=== PATIENT | male | born 2000 | race Caucasian/White ===

== ENCOUNTER 2020-01-17 18:35 | Observation (INO) ==
[2020-01-17] MEDS ORDERED: ONDANSETRON INJ 2 MG/ML 2 ML VIAL IV STA (19:19)
[2020-01-17] MEDS ORDERED: SODIUM CHLORIDE 0.9% 500 ML IV STA (19:19)
[2020-01-17 19:36] LABS: Basophils # (auto) 0.01 K/uL (0-0.2); Basophils % (auto) 0.1 %; Hemoglobin 16.2 g/dL (14.0-18.0); Immature Granulocytes # (auto) 0.02 K/uL (0.00-0.02); Immature Granulocytes % (auto) 0.2 %; Lymphocytes # (auto) 1.08 K/uL (1.2-3.4); Lymphocytes % (auto) 8.6 %; Mean Corpuscular Hemoglobin 30.9 pg (25-34); Mean Corpuscular Volume 85.9 fL (80-100); Mean Platelet Volume 9.8 fL (7.4-10.4); Monocytes # (auto) 1.18 K/uL (0.11-0.59); Monocytes % (auto) 9.4 %; Neutrophils # (auto) 10.21 K/uL (1.4-6.5); Neutrophils % (auto) 81.7 %; Platelet Count 284 K/uL (130-400); RDW Coefficient of Variation 12.3 % (11.5-14.5); RDW Standard Deviation 38.4 fL (36.4-46.3); Red Blood Count 5.24 M/uL (4.7-6.1)
[2020-01-17 19:59] LABS: Albumin Level 4.7 gm/dl (3.4-5.0); BUN Creatinine Ratio 27.6 (10-20); Calcium 9.9 mg/dl (8.5-10.1); Creatinine Clr Calc Pharmacy 85.6 ml/min; Est GFR (African American) 103.1; Est GFR (Non-African American) 88.9; Potassium 3.3 mmol/L (3.5-5.1)
[2020-01-17 20:01] LABS: Albumin Globulin Ratio 1.1 (0.9-2); Bilirubin,Total 1.7 mg/dl (0.2-1); Globulin 4.1 gm/dl (2.5-4.0); Total Protein 8.8 gm/dl (6.4-8.2)
[2020-01-17] MEDS ORDERED: SODIUM CHLORIDE 0.9% 1000ML 1,000 ML IV ONE (20:08)
[2020-01-17] MEDS ORDERED: SODIUM CHLORIDE 0.9% 1000ML 500 ML IV ONE (20:08)
[2020-01-17] MEDS ORDERED: KETOROLAC TROMETHAMINE 15 MG/ML VIAL IV ONE (20:11)
[2020-01-17] MEDS ORDERED: PROMETHAZINE 12.5 MG/50.5 ML BAG IV STA (20:11)
--- NOTE | 2020-01-17 20:15 | Emergency Department Note ---
Impression & Plan Acute dehydration, Vomiting, Failure of outpatient treatment ED Provider Note NAME: ANA CAPUTO AGE: 19 SEX: M : 2000 ARRIVES VIA: Walk-In INFORMANT: [Patient] ED PROVIDER(S): [Patrick Wiseman MD] CHIEF COMPLAINT: Vomiting HISTORY OF PRESENT ILLNESS: The patient is a 19-year-old male who is had 36 hours of vomiting. He does not really have any pain. There has been no diarrhea. No fever, chills, cough or congestion. He thinks he has food poisoning from some [place] food he ate the night before. The patient did go to urgent care yesterday, he was given ODT Zofran but, he is still vomiting. He presents for evaluation. He is concerned about dehydration. REVIEW OF SYSTEMS: See HPI for pertinent positives and negatives. A total of ten systems were reviewed and were otherwise negative. PMHx/PSHx: See Below SOCIAL HISTORY: See Below. PHYSICAL EXAM: GENERAL: Patient is in no acute distress. HEENT: No acute trauma, normocephalic atraumatic, mucous membranes dry, no nasal congestion, no scleral icterus. NECK: No stridor, no adenopathy, no meningismus, trachea is midline. LUNGS: Clear to auscultation bilaterally, no wheeze, no rhonchi, breath sounds equal. HEART: Without murmurs gallops or rubs, regular rate and rhythm. ABDOMEN: Soft, mildly tender in the epigastrium with palpation, bowel sounds positive, no hernias, no peritonitis. EXTREMITIES: No cyanosis or edema, full range of motion of all the joints without pain or difficulty, no signs for acute trauma. NEUROLOGIC: Oriented x 3, no acute motor or sensory deficits, no focal weakness. SKIN: No rash, no jaundice, no diaphoresis. DIFFERENTIAL DIAGNOSIS: Appendicitis, testicular torsion, infections, diverticulitis, UTI, obstruction, dehydration, foodborne or viral illness, mesenteric ischemia, aortic pathology, inflammatory bowel disease, renal colic, PUD, pancreatitis, biliary pathology, hernia, volvulus, constipation, as well as other pathologies. EMERGENCY DEPARTMENT COURSE/PROCEDURES: MEDICAL DECISION MAKING: There is a slight leukocytosis, this is consistent with all his vomiting. There is a normal hemoglobin and platelet count. Potassium slightly low at 3.3, no kidney failure. Bilirubin slightly elevated at 1.7, the remaining liver enzymes were unremarkable. No evidence for pancreatitis. Urinalysis showed some dehydration, no evidence for infection. Abdominal series did not show pneumonia, free air or bowel obstruction. On exam, the patient was afebrile, he was not toxic. There was no peritonitis. He did seem dehydrated. The patient received IV Toradol, IV Zofran and IV Phenergan. He was given 2 L of IV saline and 1 L of lactated Ringer's. The patient was still nauseated. He attempted some water by mouth and vomited. The patient received IV Reglan, he was given IV Benadryl. I have ordered for a CT of the abdomen pelvis to look for possibly appendicitis or some other type of surgical issue that might explain his persistent vomiting. This result is pending. Patient is not able to be discharged home. He is persistently vomiting despite numerous medications. He is quite dehydrated. He is not febrile, he does not have peritonitis. I spoke to the patient and case management. The on-call hospitalist has been counseled. The reason for the persistent vomiting is not clear. Past Med/Surg History Medical History No significant past medical history Social History Smoking Status: Never smoker Feels Safe at Home: Yes Allergies Allergies Allergy/AdvReac Type Severity Reaction Status Date / Time No Known Allergies Allergy Unverified 01/17/20 20:21 Home Meds Home Medications Medication Instructions Recorded Confirmed No Known Home Medications 01/17/20 01/17/20 Results & Data (ED) Vital Signs Vital Signs - 24 hr 01/17/20 18:53 01/17/20 19:30 01/17/20 20:00 Temperature 36.3 C L Temperature Source Oral Pulse Rate 87 78 61 Pulse Rate from SpO2 Sensor 78 64 Respiratory Rate 20 18 15 Respiratory Effort / Characteristics Non-Labored Spontaneous Respiratory Depth Normal Respiratory Pattern Regular Blood Pressure 125/78 132/77 125/71 Blood Pressure Mean 93 93 85 Blood Pressure Position Sitting Pulse Oximetry 100 99 100 Oxygen Delivery Method Room Air Sepsis Recent Fever Within 48 Hours No Sepsis New/Unexplained Change in Mental Status N/A Sepsis Action Taken by Nursing No Action Required 01/17/20 20:30 01/17/20 21:00 01/17/20 21:30 Temperature Temperature Source Pulse Rate 78 66 Pulse Rate from SpO2 Sensor 66 Respiratory Rate 14 Respiratory Effort / Characteristics Respiratory Depth Respiratory Pattern Blood Pressure 121/77 117/77 122/69 Blood Pressure Mean 85 90 87 Blood Pressure Position Pulse Oximetry 100 Oxygen Delivery Method Sepsis Recent Fever Within 48 Hours Sepsis New/Unexplained Change in Mental Status Sepsis Action Taken by [facility] Medications Current Medication List: was personally reviewed by me Laboratory Data Attestation: I reviewed the patient's lab results. Result diagrams: 01/17/20 19:30 01/17/20 19:30 Lab Results 01/17/20 01/17/20 01/17/20 Range/Units 19:30 19:30 19:30 WBC 12.50 H (4.8-10.8) K/uL RBC 5.24 (4.7-6.1) M/uL Hgb 16.2 (14.0-18.0) g/dL Hct 45.0 (42-52) % MCV 85.9 (80-100) fL MCH 30.9 (25-34) pg MCHC 36.0 (32-36) g/dL RDW Std Deviation 38.4 (36.4-46.3) fL RDW Coeff of Malick 12.3 (11.5-14.5) % Plt Count 284 (130-400) K/uL MPV 9.8 (7.4-10.4) fL Immature Gran % (Auto) 0.2 % Neut % (Auto) 81.7 % Lymph % (Auto) 8.6 % [place]osey % (Auto) 9.4 % Eos % (Auto) 0.0 % Baso % (Auto) 0.1 % Neut # (Auto) 10.21 H (1.4-6.5) K/uL Lymph # (Auto) 1.08 L (1.2-3.4) K/uL [place] # (Auto) 1.18 H (0.11-0.59) K/uL Eos # (Auto) 0.00 (0-0.5) K/uL Baso # (Auto) 0.01 (0-0.2) K/uL Immature Gran # (Auto) 0.02 (0.00-0.02) K/uL Sodium 139 (136-145) mmol/L Potassium 3.3 L (3.5-5.1) mmol/L Chloride 98 (98-107) mmol/L Carbon Dioxide 32 (21-32) mmol/L Anion Gap 9.0 (3-11) BUN 33 H (7-18) mg/dl Creatinine 1.18 (0.6-1.4) mg/dl Est Cr Clr Drug Dosing 85.6 ml/min Est GFR ( Amer) 103.1 Est GFR (Non-Af Amer) 88.9 BUN/Creatinine Ratio 27.6 H (10-20) Glucose 111 H (70-99) mg/dl Calcium 9.9 (8.5-10.1) mg/dl Magnesium 2.6 H (1.8-2.4) mg/dl Total Bilirubin 1.7 H (0.2-1) mg/dl AST 26 (15-37) U/L ALT 26 (12-78) U/L Alkaline Phosphatase 70 (45-117) U/L Total Protein 8.8 H (6.4-8.2) gm/dl Albumin 4.7 (3.4-5.0) gm/dl Globulin 4.1 H (2.5-4.0) gm/dl Albumin/Globulin Ratio 1.1 (0.9-2) Lipase 68 L (73-393) U/L Urine Color Urine Appearance (Clear) Urine pH (4.5-7.5) Ur Specific [place] (1.000-1.030) Urine Protein (Negative) Urine Glucose (UA) (Negative) Urine Ketones (Negative) Urine Blood (Negative) Urine Nitrite (Negative) Urine Bilirubin (Negative) Urine Urobilinogen (Negative) Ur Leukocyte Esterase (Negative) Urine WBC (Auto) (0-5) /hpf Urine RBC (Auto) (0-4) /hpf U Hyaline Cast (Auto) (0-5) /lpf U Epithel Cells (Auto) (0-5) /lpf Urine Bacteria (Auto) (Negative) 01/17/20 Range/Units 21:10 WBC (4.8-10.8) K/uL RBC (4.7-6.1) M/uL Hgb (14.0-18.0) g/dL Hct (42-52) % MCV (80-100) fL MCH (25-34) pg MCHC (32-36) g/dL RDW Std Deviation (36.4-46.3) fL RDW Coeff of Malick (11.5-14.5) % Plt Count (130-400) K/uL MPV (7.4-10.4) fL Immature Gran % (Auto) % Neut % (Auto) % Lymph % (Auto) % [place] % (Auto) % Eos % (Auto) % Baso % (Auto) % Neut # (Auto) (1.4-6.5) K/uL Lymph # (Auto) (1.2-3.4) K/uL [place] # (Auto) (0.11-0.59) K/uL Eos # (Auto) (0-0.5) K/uL Baso # (Auto) (0-0.2) K/uL Immature Gran # (Auto) (0.00-0.02) K/uL Sodium (136-145) mmol/L Potassium (3.5-5.1) mmol/L Chloride (98-107) mmol/L Carbon Dioxide (21-32) mmol/L Anion Gap (3-11) BUN (7-18) mg/dl Creatinine (0.6-1.4) mg/dl Est Cr Clr Drug Dosing ml/min Est GFR ( Amer) Est GFR (Non-Af Amer) BUN/Creatinine Ratio (10-20) Glucose (70-99) mg/dl Calcium (8.5-10.1) mg/dl Magnesium (1.8-2.4) mg/dl Total Bilirubin (0.2-1) mg/dl AST (15-37) U/L ALT (12-78) U/L Alkaline Phosphatase (45-117) U/L Total Protein (6.4-8.2) gm/dl Albumin (3.4-5.0) gm/dl Globulin (2.5-4.0) gm/dl Albumin/Globulin Ratio (0.9-2) Lipase (73-393) U/L Urine Color Dark Yellow Urine Appearance Clear (Clear) Urine pH 7.0 (4.5-7.5) Ur Specific [place] 1.034 H (1.000-1.030) Urine Protein 2+ H (Negative) Urine Glucose (UA) Negative (Negative) Urine Ketones 1+ H (Negative) Urine Blood Negative (Negative) Urine Nitrite Negative (Negative) Urine Bilirubin Negative (Negative) Urine Urobilinogen Negative (Negative) Ur Leukocyte Esterase Negative (Negative) Urine WBC (Auto) 1-5 (0-5) /hpf Urine RBC (Auto) 5-10 H (0-4) /hpf U Hyaline Cast (Auto) 1-5 (0-5) /lpf U Epithel Cells (Auto) 20-30 H (0-5) /lpf Urine Bacteria (Auto) Negative (Negative) Administered Medications Discontinued Medications Diphenhydramine HCl (Diphenhydramine Hcl 50 Mg/Ml Vial) 12.5 mg IV NOW STA Stop: 01/17/20 22:10 Last Admin: 01/17/20 22:15 Dose: 12.5 mg Documented by: [id number] Sodium Chloride (Nss) 500 mls @ 999 mls/hr IV .Q31M STA Stop: 01/17/20 19:49 Last Infusion: 01/17/20 20:24 Dose: 0 mls/hr Documented by: [id number] Admin: 01/17/20 19:33 Dose: 999 mls/hr Documented by: [id number] Sodium Chloride (Nss 1000ml) 1,000 mls @ 999 mls/hr IV .Q1H1M ONE Stop: 01/17/20 21:08 Last Infusion: 01/17/20 20:54 Dose: 0 mls/hr Documented by: [id number] Admin: 01/17/20 20:23 Dose: 999 mls/hr Documented by: [id number] Sodium Chloride (Nss 1000ml) 500 mls @ 999 mls/hr IV .Q31M ONE Stop: 01/17/20 20:38 Last Infusion: 01/17/20 20:54 Dose: 0 mls/hr Documented by: [id number] Admin: 01/17/20 20:23 Dose: 999 mls/hr Documented by: [id number] Promethazine HCl (Phenergan) 12.5 mg in 50.5 mls @ 202 mls/hr IV NOW STA Stop: 01/17/20 20:25 Last Infusion: 01/17/20 20:38 Dose: 0 mls/hr Documented by: [id number] Admin: 01/17/20 20:23 Dose: 202 mls/hr Documented by: [id number] Lactated Ringer's (Lr) 1,000 mls @ 999 mls/hr IV .Q1H1M STA Stop: 01/17/20 22:07 Last Infusion: 01/17/20 22:10 Dose: 0 mls/hr Documented by: [id number] Admin: 01/17/20 21:09 Dose: 999 mls/hr Documented by: [id number] Ketorolac Tromethamine (Ketorolac Tromethamine 15 Mg/Ml Vial) 10 mg IV NOW ONE Stop: 01/17/20 20:12 Last Admin: 01/17/20 20:23 Dose: 10 mg Documented by: [id number] Metoclopramide HCl (Metoclopramide Hcl Inj 5 Mg/Ml 2 Ml Vial) 10 mg IV NOW STA Stop: 01/17/20 22:10 Last Admin: 01/17/20 22:15 Dose: 10 mg Documented by: [id number] Ondansetron HCl (Ondansetron Inj 2 Mg/Ml 2 Ml Vial) 4 mg IV NOW STA Stop: 01/17/20 19:20 Last Admin: 01/17/20 19:33 Dose: 4 mg Documented by: [id number] Imaging Data Radiologist's Impression: XR abdomen 2V w PA chest CLINICAL HISTORY: Nausea, vomiting, diarrhea COMPARISON STUDY: No previous studies for comparison. FINDINGS: The erect chest reveals no evidence of free air. There is no evidence of focal pulmonary consolidation.] Erect and supine views of the abdomen reveal no abnormally dilated loops of large or small bowel. There are no transition zone to indicate bowel obstruction. There is a mild thoracolumbar scoliosis IMPRESSION: No evidence of bowel obstruction. No evidence of free air. Abdominal and pelvis CT with IV contrast is pending. Blood Pressure Blood Pressure Findings: Elevated blood pressure Blood Pressure Disposition: further management by hospitalist Discharge Plan Visit Data Chief Complaint: Vomiting Stated Complaint: VOMIT, NAUSEA ED Provider: Patrick Wiseman Discharge Problem: Acute dehydration, Vomiting, Failure of outpatient treatment Patient Disposition: Admitted As Inpatient Condition: Fair Forms Stand Alone Forms: [facility] Emergency Department, Important Visit Information Prescriptions Prescriptions: No Action No Known Home Medications RF: 0 Referrals Referrals: Nba Munoz DO [Primary Care Provider] - Discharge Problem: Vomiting Qualifiers: Vomiting type: unspecified Vomiting Intractability: intractable Nausea presence: with nausea Qualified Code(s): R11.2 - Nausea with vomiting, unspecified
--- NOTE | 2020-01-17 21:05 | XRay Report ---
XR abdomen 2V w PA chest CLINICAL HISTORY: Nausea, vomiting, diarrhea COMPARISON STUDY: No previous studies for comparison. FINDINGS: The erect chest reveals no evidence of free air. There is no evidence of focal pulmonary co nsolidation.] Erect and supine views of the abdomen reveal no abnormally dilated loops of large or sm all bowel. There are no transition zone to indicate bowel obstruction. There is a mild thoracolumbar scoliosis IMPRESSION: No evidence of bowel obstruction. No evidence of free air. ACT 112: Negative or not required by law. Electronically signed by: Miguel Miguel M.D. 01/17/2020 9:04 PM
[2020-01-17] MEDS ORDERED: LACTATED RINGER'S 1,000 ML IV STA (21:07)
[2020-01-17 21:20] LABS: Appearance Urine Clear (Clear); Bacteria Urine Automated Negative (Negative); Bilirubin Urine Negative (Negative); Blood Urine Negative (Negative); Color Urine Dark Yellow; Epithelial Cell Urine Auto 20-30 /lpf (0-5); Glucose Urine UA Negative (Negative); Ketones Urine 1+ (Negative); Leukocyte Esterase Urine Negative (Negative); Nitrite Urine Negative (Negative); Protein Urine 2+ (Negative); Specific Gravity Urine 1.034 (1.000-1.030); Urobilinogen Urine Negative (Negative)
[2020-01-17] MEDS ORDERED: METOCLOPRAMIDE HCL INJ 5 MG/ML 2 ML VIAL IV STA (22:09)
[2020-01-17] MEDS ORDERED: DiphenhydrAMINE HCL 50 MG/ML VIAL IV STA ×2 (22:09→22:31)
[2020-01-17] MEDS ORDERED: LORazepam 1 MG/2 ML VIAL IV STA (22:31)
[2020-01-17] MEDS ORDERED: IOVERSOL 100ml IV ONE (22:36)
--- NOTE | 2020-01-17 23:05 | History & Physical Report ---
Date of Service January 17, 2020 Assessment & Plan (1) Vomitinyo C male [employer] with no significant past medical or surgical history presenting with 1 day of intractable nausea, multiple episodes of non-bloody/non-bilious vomiting. Patient thinks his symptoms may be secondary to food poisoning from a [employer] house. He is afebrile, HD stable, non-toxic in appearance but persistently nauseated. Labs with elevated WBC=12.5 and Tbili=1.7. Mild hypokalemia at 3.3 -Observation to medical floor -NSS at 125mL/hr +KCl -Zofran and Phenergan PRN F/E/N - NSS and K as above, monitor electrolytes, clear liquid diet as tolerated Ppx - Low risk for DVT Code - Full Dispo - Observation to medical floor Present on Admission?: Yes History of Present Illness Chief Complaint: nausea/vomiting, intractable Primary Care Provider: Nba Munoz DO Rony Palma is a 19yo C male with no significant past medical or surgical history presenting with severe nausea and vomiting that started yesterday AM. Patient reports eating a noodle bowl before his symptoms began. He reports multiple episodes of non-bloody/non-bilious vomiting and po intolerance. No fevers/chills/sweats or diarrhea. No cough/SOB/CP. No concerns for Covid-19 infection. Patient denies EtOH and Marijuana use. Patient was seen at Urgent Care and prescribed Zofran ODT. He took two doses of this with minimal relief in symptoms. On arrival to the ER he was found to be afebrile, HD stable, NAD. He was administered IV Benadryl, Reglan, Phenergan and Zofran in the ER with very little improvement in symptoms. Patient tried to drink a small amount of water in the ER and vomited. No additional complaints at this time. Allergies Allergy/AdvReac Type Severity Reaction Status Date / Time No Known Allergies Allergy Unverified 01/17/20 20:21 Home Medications Home Medications Medication Instructions Recorded Confirmed Type No Known Home Medications 01/17/20 01/17/20 History Past Med/Surg History Medical History (Updated 01/18/20 @ 01:20 by Susan Mayfield DO) No significant past medical history Vomiting Surgical History (Updated 08/29/20 @ 01:15 by Susan Mayfield DO) History of wisdom tooth extraction Family History (Updated 01/18/20 @ 01:15 by Susan Mayfield DO) Other No significant family history Social History Smoking Status: Former smoker Second Hand Exposure: No; Do You Dip or Chew Tobacco: No; Tobacco Cessation Education Requested by Patient: No Hx Alcohol Use: Yes Alcohol type: beer Hx Substance Use: No Preferred Language: Honduran Communication Ability: Effective Cord Cutter Required: No Beliefs That Will Affect Care: None Current Living Situation: Other Current Living Situation Comment: Off campus housing with others. Other Information That Helps Us Care for You: No Feels Safe at Home: Yes Safety Concerns: Feels Safe At This Time Review of Systems Review of Systems: All systems reviewed & are unremarkable except as noted in HPI & below Physical Exam Physical Exam: General: patient resting comfortably, NAD, non-toxic in appearance, AA&O x 4 Skin: warm, dry, intact, no rashes or lesions HEENT: NC/AT, PERRL, EOMI, anicteric sclera, conjunctiva without injection, external ear normal to inspection and nontender, nares patent, dry mucus membranes, dentition intact, no oropharyngeal lesions, neck supple, trachea midline, no LAD, no thyromegaly, no JVD Heart: +S1/S2, regular, no m/r/g Lungs: equal air entry bilaterally, no rales/rhonchi/wheezes Abd: +BS, soft, mildly tender with deep palpation, ND, no masses/organomegaly/ascites Ext: warm, 2+ pulses in UE/LE bilaterally, no clubbing/cyanosis or edema Neuro: nonfocal, patient AA&O x 4, speech intact, no facial droop, moving all extremities on command with equal strength 5/5 Results & Data Results & Data ([facility]) Vital Signs (Past 12 Hours) Vital Signs Temp Pulse Resp BP Pulse Ox 01/17/20 22:30 79 13 129/77 98 01/17/20 22:29 88 15 121/80 98 01/17/20 22:00 82 126/82 100 01/17/20 21:30 66 122/69 100 01/17/20 21:00 78 14 117/77 01/17/20 20:30 121/77 01/17/20 20:00 61 15 125/71 100 01/17/20 19:30 78 18 132/77 99 01/17/20 18:53 36.3 C L 87 20 125/78 100 Laboratory Results Lab Results 01/17/20 01/17/20 01/17/20 Range/Units 19:30 19:30 19:30 WBC 12.50 H (4.8-10.8) K/uL RBC 5.24 (4.7-6.1) M/uL Hgb 16.2 (14.0-18.0) g/dL Hct 45.0 (42-52) % MCV 85.9 (80-100) fL MCH 30.9 (25-34) pg MCHC 36.0 (32-36) g/dL RDW Std Deviation 38.4 (36.4-46.3) fL RDW Coeff of Malick 12.3 (11.5-14.5) % Plt Count 284 (130-400) K/uL MPV 9.8 (7.4-10.4) fL Immature Gran % (Auto) 0.2 % Neut % (Auto) 81.7 % Lymph % (Auto) 8.6 % [place] % (Auto) 9.4 % Eos % (Auto) 0.0 % Baso % (Auto) 0.1 % Neut # (Auto) 10.21 H (1.4-6.5) K/uL Lymph # (Auto) 1.08 L (1.2-3.4) K/uL [place] # (Auto) 1.18 H (0.11-0.59) K/uL Eos # (Auto) 0.00 (0-0.5) K/uL Baso # (Auto) 0.01 (0-0.2) K/uL Immature Gran # (Auto) 0.02 (0.00-0.02) K/uL Sodium 139 (136-145) mmol/L Potassium 3.3 L (3.5-5.1) mmol/L Chloride 98 (98-107) mmol/L Carbon Dioxide 32 (21-32) mmol/L Anion Gap 9.0 (3-11) BUN 33 H (7-18) mg/dl Creatinine 1.18 (0.6-1.4) mg/dl Est Cr Clr Drug Dosing 85.6 ml/min Est GFR ( Amer) 103.1 Est GFR (Non-Af Amer) 88.9 BUN/Creatinine Ratio 27.6 H (10-20) Glucose 111 H (70-99) mg/dl Calcium 9.9 (8.5-10.1) mg/dl Phosphorus 3.3 (2.5-4.9) mg/dl Magnesium 2.6 H (1.8-2.4) mg/dl Total Bilirubin 1.7 H (0.2-1) mg/dl AST 26 (15-37) U/L ALT 26 (12-78) U/L Alkaline Phosphatase 70 (45-117) U/L Total Protein 8.8 H (6.4-8.2) gm/dl Albumin 4.7 (3.4-5.0) gm/dl Globulin 4.1 H (2.5-4.0) gm/dl Albumin/Globulin Ratio 1.1 (0.9-2) Lipase 68 L (73-393) U/L Urine Color Urine Appearance (Clear) Urine pH (4.5-7.5) Ur Specific [place] (1.000-1.030) Urine Protein (Negative) Urine Glucose (UA) (Negative) Urine Ketones (Negative) Urine Blood (Negative) Urine Nitrite (Negative) Urine Bilirubin (Negative) Urine Urobilinogen (Negative) Ur Leukocyte Esterase (Negative) Urine WBC (Auto) (0-5) /hpf Urine RBC (Auto) (0-4) /hpf U Hyaline Cast (Auto) (0-5) /lpf U Epithel Cells (Auto) (0-5) /lpf Urine Bacteria (Auto) (Negative) 01/17/20 Range/Units 21:10 WBC (4.8-10.8) K/uL RBC (4.7-6.1) M/uL Hgb (14.0-18.0) g/dL Hct (42-52) % MCV (80-100) fL MCH (25-34) pg MCHC (32-36) g/dL RDW Std Deviation (36.4-46.3) fL RDW Coeff of Malick (11.5-14.5) % Plt Count (130-400) K/uL MPV (7.4-10.4) fL Immature Gran % (Auto) % Neut % (Auto) % Lymph % (Auto) % [place] % (Auto) % Eos % (Auto) % Baso % (Auto) % Neut # (Auto) (1.4-6.5) K/uL Lymph # (Auto) (1.2-3.4) K/uL [place] # (Auto) (0.11-0.59) K/uL Eos # (Auto) (0-0.5) K/uL Baso # (Auto) (0-0.2) K/uL Immature Gran # (Auto) (0.00-0.02) K/uL Sodium (136-145) mmol/L Potassium (3.5-5.1) mmol/L Chloride (98-107) mmol/L Carbon Dioxide (21-32) mmol/L Anion Gap (3-11) BUN (7-18) mg/dl Creatinine (0.6-1.4) mg/dl Est Cr Clr Drug Dosing ml/min Est GFR ( Amer) Est GFR (Non-Af Amer) BUN/Creatinine Ratio (10-20) Glucose (70-99) mg/dl Calcium (8.5-10.1) mg/dl Phosphorus (2.5-4.9) mg/dl Magnesium (1.8-2.4) mg/dl Total Bilirubin (0.2-1) mg/dl AST (15-37) U/L ALT (12-78) U/L Alkaline Phosphatase (45-117) U/L Total Protein (6.4-8.2) gm/dl Albumin (3.4-5.0) gm/dl Globulin (2.5-4.0) gm/dl Albumin/Globulin Ratio (0.9-2) Lipase (73-393) U/L Urine Color Dark Yellow Urine Appearance Clear (Clear) Urine pH 7.0 (4.5-7.5) Ur Specific [place] 1.034 H (1.000-1.030) Urine Protein 2+ H (Negative) Urine Glucose (UA) Negative (Negative) Urine Ketones 1+ H (Negative) Urine Blood Negative (Negative) Urine Nitrite Negative (Negative) Urine Bilirubin Negative (Negative) Urine Urobilinogen Negative (Negative) Ur Leukocyte Esterase Negative (Negative) Urine WBC (Auto) 1-5 (0-5) /hpf Urine RBC (Auto) 5-10 H (0-4) /hpf U Hyaline Cast (Auto) 1-5 (0-5) /lpf U Epithel Cells (Auto) 20-30 H (0-5) /lpf Urine Bacteria (Auto) Negative (Negative) Diagnostic Findings XR abdomen 2V w PA chest CLINICAL HISTORY: Nausea, vomiting, diarrhea COMPARISON STUDY: No previous studies for comparison. FINDINGS: The erect chest reveals no evidence of free air. There is no evidence of focal pulmonary consolidation.] Erect and supine views of the abdomen reveal no abnormally dilated loops of large or small bowel. There are no transition zone to indicate bowel obstruction. There is a mild thoracolumbar scoliosis IMPRESSION: No evidence of bowel obstruction. No evidence of free air. ACT 112: Negative or not required by law. Electronically signed by: Miguel Miguel M.D. 01/17/2020 9:04 PM Dictated: 01/17/202102 Transcribed: 01/17/202102 CT Abdomen and Pelvis with Contrast: Per STAT-rad - The appendix is not clearly seen although there are no secondary changes of appendicitis in the right lower quadrant. Question distal rectal wall thickening. Consider proctitis. Kidneys, pancreas and gallbladder are unremarkable. No other inflammatory changes of bowel or bowel obstruction, free air or free fluid. No other acute disease. Code Status & VTE Plan Code Status FULL PG Care Time/CCT Total # of Minutes Spent Total Time Spent with Patient: Total time spent is greater than 50% in coordination of care (as documented) at patient's floor/unit and/or counseling patient: Coding Level of Care Code 18293 OBS Care - Level 2 Diagnoses Vomiting R11.2 Nausea presence: with nausea Vomiting Intractability: intractable Vomiting type: unspecified (1) Vomiting Nausea presence: with nausea Vomiting Intractability: intractable Vomiting type: unspecified Qualified Code(s): R11.2 - Nausea with vomiting, unspecified
[2020-01-18] MEDS ORDERED: ONDANSETRON INJ 2 MG/ML 2 ML VIAL IV PRN (00:23)
[2020-01-18] MEDS ORDERED: ACETAMINOPHEN 325 MG TAB PO PRN (00:23)
[2020-01-18] MEDS ORDERED: PROMETHAZINE HCL 6.25 MG in SODIUM CHLORIDE 0.9% 50 ML IV PRN (00:23)
[2020-01-18] MEDS: NSS + 20MEQ KCL 20 MEQ/1,000 ML BAG IV SCH ×2 (00:45→08:15)
[2020-01-18 01:12] LABS: Phosphorus 3.3 mg/dl (2.5-4.9)
[2020-01-18 06:09] LABS: Basophils # (auto) 0.02 K/uL (0-0.2); Basophils % (auto) 0.2 %; Eosinophils # (auto) 0.13 K/uL (0-0.5); Eosinophils % (auto) 1.4 %; Hematocrit (blood only) 40.7 % (42-52); Hemoglobin 13.7 g/dL (14.0-18.0); Immature Granulocytes # (auto) 0.02 K/uL (0.00-0.02); Immature Granulocytes % (auto) 0.2 %; Lymphocytes # (auto) 2.32 K/uL (1.2-3.4); Lymphocytes % (auto) 24.5 %; Mean Corpuscular Hgb Conc 33.7 g/dL (32-36); Mean Corpuscular Volume 89.3 fL (80-100); Mean Platelet Volume 9.6 fL (7.4-10.4); Monocytes # (auto) 1.12 K/uL (0.11-0.59); Monocytes % (auto) 11.8 %; Neutrophils # (auto) 5.85 K/uL (1.4-6.5); Neutrophils % (auto) 61.9 %; Platelet Count 247 K/uL (130-400); RDW Coefficient of Variation 12.5 % (11.5-14.5); RDW Standard Deviation 40.8 fL (36.4-46.3); Red Blood Count 4.56 M/uL (4.7-6.1); White Blood Count 9.46 K/uL (4.8-10.8)
[2020-01-18 06:20] LABS: Amphetamines+Metham, Urine Neg (Neg); Barbiturates, Urine Neg (Neg); Benzodiazepine, Urine Neg (Neg); Cocaine, Urine Neg (Neg); MDMA (Ecstacy), Urine Neg (Neg); Methadone, Urine Neg (Neg); Opiate, Urine Neg (Neg); Phencyclidine, Urine Neg (Neg)
[2020-01-18 06:39] LABS: Albumin Level 3.6 gm/dl (3.4-5.0); BUN Creatinine Ratio 24.4 (10-20); Bilirubin Direct 0.3 mg/dl (0-0.2); Calcium 8.8 mg/dl (8.5-10.1); Creatinine Clr Calc Pharmacy 94.1 ml/min; Est GFR (African American) 109.8; Est GFR (Non-African American) 94.7; Potassium 3.3 mmol/L (3.5-5.1)
[2020-01-18 06:46] LABS: Bilirubin,Total 1.5 mg/dl (0.2-1); Total Protein 6.7 gm/dl (6.4-8.2)
--- NOTE | 2020-01-18 07:19 | CT Scan Report ---
CT abd pelvis IV con only CLINICAL HISTORY: Right lower quadrant abdominal pain. Vomiting. COMPARISON STUDY: None. TECHNIQUE: Patient was scanned in a dynamic helical fashion during intravenous administration of 93 c c of Optiray 320. A dose lowering technique was utilized adhering to the principles of ALARA. CT DOSE: 272.94 mGy.cm FINDINGS: Lower chest: There is a 2.5 mm right lower lobe pulmonary nodule. This is unlikely to be of clinical significance in a patient this age. Liver: There is minimal periportal edema, likely secondary to hydration. Gallbladder: No gallstones are visualized. There is trace pericholecystic fluid. Spleen: Normal in size and attenuation. Pancreas: Unremarkable. Adrenal glands: Unremarkable. Kidneys: There is symmetric renal cortical enhancement. The kidneys are normal in size without hydron ephrosis. Bowel: There are no transition zones to indicate bowel obstruction. There is no evidence of acute div erticulitis. There is no evidence of acute appendicitis. There is borderline rectal wall thickening w hich may be secondary to nondistention. Peritoneum: There is trace peritoneal fluid. There is no free intraperitoneal air. Vasculature: The abdominal aorta is normal in course and caliber. Adenopathy: None. Pelvic viscera: The bladder, and pelvic viscera are unremarkable. Skeletal structures: No destructive osseous lesions are seen. IMPRESSION: 1. No evidence of bowel obstruction. No evidence of free air 2. No evidence of acute appendicitis. No evidence of acute diverticulitis. 3. Borderline rectal wall thickening. ACT 112: Negative or not required by law. Electronically signed by: Miguel Miguel M.D. 01/18/2020 7:18 AM
[2020-01-18] MEDS ORDERED: POTASSIUM CHLORIDE 20 MEQ TABCR PO STA (08:15)
--- NOTE | 2020-01-18 12:36 | Discharge Summary ---
Date of Service January 18, 2020 Admission HPI Per Admitting Provider Rony Palma is a 19yo C male with no significant past medical or surgical history presenting with severe nausea and vomiting that started yesterday AM. Patient reports eating a noodle bowl before his symptoms began. He reports multiple episodes of non-bloody/non-bilious vomiting and po intolerance. No fevers/chills/sweats or diarrhea. No cough/SOB/CP. No concerns for Covid-19 infection. Patient denies EtOH and Marijuana use. Patient was seen at Urgent Care and prescribed Zofran ODT. He took two doses of this with minimal relief in symptoms. On arrival to the ER he was found to be afebrile, HD stable, NAD. He was administered IV Benadryl, Reglan, Phenergan and Zofran in the ER with very little improvement in symptoms. Patient tried to drink a small amount of water in the ER and vomited. No additional complaints at this time. Principal Diagnosis Intractable nausea/vomiting, suspect food poisoning Discharge Exam Constitutional WD/WN, vitals as above Eyes + anicteric sclerae ENMT external ear and nose normal, oropharynx normal Neck trachea midline, no thyromegaly Respiratory normal respiratory effort, lungs clear to auscultation Cardiovascular RRR, no murmur, no edema Chest (Breasts) Chest: normal inspection of chest Gastrointestinal (Abdomen) normal bowel sounds, soft, nontender, no hepatosplenomegaly Musculoskeletal Extremities: extremities normal to inspection; no cyanosis and no clubbing Skin no rashes, warm and dry Neurologic moves all extremities and awake; no focal motor deficits Psychiatric A+Ox3, euthymic affect Lymphatic no lymphedema Discharge Data Allergies Allergy/AdvReac Type Severity Reaction Status Date / Time No Known Allergies Allergy Unverified 01/17/20 20:21 Consultations 01/17/20 22:11 ED Decision to Admit Stat Ordered Studies 01/17/20 22:15 CT abd pelvis IV con only Urgent Abdominal x-ray series, chest x-ray Hospital Course (1) Vomitinyo C male [employer] with no significant past medical or surgical history presenting with 1 day of intractable nausea, multiple episodes of n on-bloody/non-bilious vomiting. Patient thinks his symptoms may be secondary to food poisoning from a Noodle house. He is afebrile, HD stable, non-toxic in appearance but was persistently nauseated. Labs with elevated WBC=12.5 and Tbili=1.7. Mild hypokalemia at 3.3 upon admission He required multiple doses of antiemetics in the emergency room and continued to vomit. He was admitted to the medical floor and hydrated overnight with NSS at 125mL/hr +KCl. He had no further nausea and vomiting and did not require any further antiemetics. He was tolerating p.o. and was feeling much improved. No abdominal pain at the time of discharge. His potassium was mildly low and was replaced with oral potassium chloride. His serum bicarbonate was mildly elevated which may have been from a contraction alkalosis. Creatinine was improved from 1.18 down to 1.12. Total bilirubin was mildly elevated at 1.5 but was down from 1.7 the day before and was all majority indirect bilirubin. Most likely consistent with Gilbert's syndrome and no further follow-up is needed. CT of the abdomen/pelvis without any abnormalities in the liver or gallbladder except periportal edema which may be from IV fluid hydration. He did have some possible mild rectal wall thickening, but no diarrhea. He was doing very well and was stable for discharge to home with close follow-up with PCP (2) Hypokalemia: As noted above, replaced, secondary to GI losses (3) Hyperbilirubinemia: As above, possible Gilbert's syndrome. (4) Acute dehydration: As above, now resolved (5) Proteinuria: Had 2+ protein on urinalysis The should be followed up with his primary care physician with repeat UA as an outpatient Total Time Total Time Spent Total Time Spent (In Minutes): 35 minutes Total Time Includes: Examination of the Patient, Discharge Planning and Medication Reconciliation Discharge Plan Discharge Items Patient Disposition: Home - Self-Care Reason For Visit: INTRACTABLE NAUSEA Discharge Diagnosis: Intractable nausea and vomiting, suspect food poisoning Condition on Discharge: Good Activity: As commented below Lifting: Gradually increase as tolerated Bathing: No limitations Exercise/Sports: Gradually increase as tolerated Weightbearing: Full weightbearing Non-emergency contact: Primary Care Provider Call non-emergency contact if: your symptoms worsen Follow-up/Referrals: Nba Munoz DO [Primary Care Provider] - (Follow-up within 1 to 2 weeks) Diet: Regular Addtl Attending Provider Instructions: Continue to stay hydrated and eat bland foods until you are feeling back to n ormal. Please follow-up with your primary care physician within 1 to 2 weeks. Pending Studies at Discharge: No Stand-Alone Forms: My [facility] [employer] Medications and DC Order Prescriptions: No Action No Known Home Medications RF: 0 Discharge Orders: Discharge Order (Routine); Ordered 01/18/20 Ordered By: Genna Posada Admission Data Admit Date/Time: 01/17/20 23:05 Attending Provider: Genna Posada Admit Provider: Susan Mayfield Primary Care Provider: Nba Munoz Other Providers: Susan Mayfield Coding Level of Care Code 68128 OBS Care - Discharge Diagnoses Vomiting R11.2 Nausea presence: with nausea Vomiting Intractability: intractable Vomiting type: unspecified Hypokalemia E87.6 Hyperbilirubinemia E80.6 Acute dehydration E86.0 Proteinuria R80.9
== END 2020-01-18 14:51 | disposition home or self-care (01) ==
LOC: ED 18:35 → 3E 18:35 → SUATTDRO 23:05 → 3E 01-18 00:07